=== PATIENT | male | born 2000 | race Hispanic/Latino ===

== ENCOUNTER 2024-02-20 10:18 | Emergency (ER) | payer OTHER ==
[~2024-02-20] VITALS: Ht 182.9 cm; Wt 79.0 kg
[2024-02-20 12:06] VITALS: BP 144/82
[2024-02-20] MEDS ORDERED: oxyCODONE 5MG/ ACETAMINOPHEN 325MG TAB PO ONE (12:10)
[2024-02-20 12:30] VITALS: BP 106/78
[2024-02-20 13:01] VITALS: BP 107/74
[2024-02-20] MEDS ORDERED: PERCOCET 5/325M1 TAB PO (13:11)
[2024-02-20 13:35] VITALS: BP 107/74
== END 2024-02-20 13:45 | disposition home or self-care (01) | DRG 563 ==
LOC: ED 10:18
PROC: 2W3EX1Z Immobilization of Right Hand using Splint (ICD-10-PCS; principal; 2024-02-20)
DX: S62.326A Displaced fracture of shaft of fifth metacarpal bone, right hand, initial encounter for closed fracture (principal); W55.22XA Struck by cow, initial encounter; Y93.K9 Activity, other involving animal care; Y92.79 Other farm location as the place of occurrence of the external cause; Y99.0 Civilian activity done for income or pay